=== PATIENT | male | born 1995 | race Caucasian/White ===

== ENCOUNTER 2016-09-24 03:28 | Emergency (ER) | payer OTHER ==
[~2016-09-24] VITALS: Ht 167.6 cm; Wt 68.0 kg
[2016-09-24 05:55] VITALS: BP 136/79
[2016-09-24] MEDS ORDERED: PENICILLIN V POTASSIUM 500 MG TABLET PO ONE (06:45)
[2016-09-24] MEDS ORDERED: OxyCODONE HCL/ACETAMINOPHEN 5-325 MG TABLET PO ONE (06:45)
== END 2016-09-24 06:44 | disposition home or self-care (01) ==
LOC: EMS 03:30
DX: K02.9 Dental caries, unspecified (principal); F17.210 Nicotine dependence, cigarettes, uncomplicated
CPT/HCPCS: 99283